=== PATIENT | female | born 1940 | race Caucasian/White ===

== ENCOUNTER 2016-12-08 08:03 | Day surgery (SDC) | payer MEDICARE, BC ==
[~2016-12-08 08:03] MED LIST: CLINDAMYCIN 600MG/50ML PREMIX 600 MG/50 ML BAG IVPB ONE
[2016-12-08 08:25] LABS: BASO % 0.4 % (0-6); EOS % 2.2 % (0-6); GRAN % 66.6 % (47-80); HEMATOCRIT 43.5 % (35.0-47.0); HEMOGLOBIN 14.4 gm/dl (11.6-16.0); LYMPH % 23.6 % (16-45); MEAN CELL VOLUME 91.4 fl (81-97); MEAN CORPUSCULAR HEMOGLOBIN 30.3 pg (27-33); MEAN CORPUSCULAR HGB CONC 33.1 g/dl (32-36); MEAN PLATELET VOLUME 10.4 fl (7.4-10.4); MONO % 7.2 % (0-9); PLATELET COUNT 214 K/uL (130-400); RED BLOOD COUNT 4.76 M/uL (3.80-5.40); RED CELL DISTRIBUTION WIDTH 13.4 % (11.5-14.5)
[2016-12-08 08:37] LABS: PROTHROMBIN TIME (PATIENT) 10.8 SECONDS (9.5-12.1)
[2016-12-08 09:41] LABS: BLOOD UREA NITROGEN 26 mg/dL (7-17); CARBON DIOXIDE 30.7 mmol/L (22-30); CREATININE 0.9 mg/dL (0.52-1.04); EST GLOMERULAR FILTRATION RATE > 60 ml/min; GLUCOSE,RANDOM 104 mg/dL (70-110)
[2016-12-08 09:42] LABS: ANION GAP 7.3 (7-16)
[2016-12-08] MEDS ORDERED: FENTANYL PF 100MCG/2ML VIAL IV ONE (12:48)
[2016-12-08] MEDS ORDERED: MIDAZOLAM HCL 2MG/2ML VIAL IV ONE (12:48)
[2016-12-08] MEDS ORDERED: PROPOFOL 10 MG/ML VIAL IV ONE (12:48)
[2016-12-08] MEDS ORDERED: LIDOCAINE 2% MDV (20MG/ML) 20ML VIAL IV ONE (12:48)
--- NOTE | 2016-12-11 10:10 | Operative Note ---
DATE OF SURGERY: 12/08/2016 Surgeon: Jewel Glasgow MD PREOPERATIVE DIAGNOSIS: Gross hematuria and right flank pain. POSTOPERATIVE DIAGNOSIS: Gross hematuria and right flank pain. OPERATION: 1. Cystoscopy. 2. Bilateral retrograde pyelograms. Anesthesia: Sedation. Indication: A 75--year-old female with the above history who has already had a noncontrast CT scan showing no upper track abnormality and she presents for completion of the investigation today. PROCEDURE: Preop informed consent was obtained. Antibiotics were given. Sedation was administered. The patient was brought to the operating room, placed in the lithotomy position with the genitalia prepped and draped sterilely. Cystoscopy was performed. The urethra and bladder was inspected carefully. No bladder mucosal abnormality was seen and the ureteral orifices had normal appearance and positioning and each was effluxing clear urine. Injection of contrast was performed into both ureters and serial mobile fluoroscopic images were obtained and saved. Recognizing the limitations to see fine detail with mobile fluoroscopy, there was no evidence of any upper tract filling defect, stricture, or dilatation on either side and drainage was quite prompt bilaterally. The bladder was then emptied, the scope was withdrawn. Bimanual pelvic exam was carried out. The patient is status post hysterectomy. There is no significant vaginal prolapse and no evidence of any vaginal or pelvic mass. The procedure was terminated. The patient was transferred to recovery in stable condition. PLAN: The patient's urologic workup is complete and no abnormality has been found. She was asked to follow up in the clinic if there is any change in her urinary symptoms moving forward. CC: Dr. Callum BARROW
== END 2016-12-08 11:30 | disposition home or self-care (01) ==
LOC: SUR 08:03
PROVIDERS: ATTEND Urology
DX: R31.0 Gross hematuria (principal); I48.91 Unspecified atrial fibrillation; Z79.01 Long term (current) use of anticoagulants; I10 Essential (primary) hypertension
CPT/HCPCS: 85025; 85610; 80048; 76000; 93005; 93010; 52005; 00910; J3010

== ENCOUNTER 2018-06-22 08:19 | Observation (INO) | payer MEDICARE ==
--- NOTE | 2018-06-22 08:56 | Emergency Department Record ---
History of Present Illness - General Chief complaint: Lower Extremity Pain Stated complaint: R LEG BRUISED/ON BLOOD THINNER Time Seen by Provider: 06/22/18 08:34 Source: Patient Mode of Arrival: Ambulatory Limitations: No limitations - History of Present Illness Initial comments: pt was exercising bending over touching her toes last night when she felt a snap in the back of her leg and had pain. this am pt found the back of her leg to be bruised in the thigh and still operator brandy MD Complaint: Extremity pain, Extremity swelling Location: Right Radiation: Proximal, Distal Severity scale (1-10): 1 Quality: Aching Improves with: Immobilization Worsens with: Walking Associated Symptoms: Denies other symptoms - Related Data Home Medications Medication Instructions Recorded Confirmed Last Taken Aspirin [Aspir-Low] 81 mg PO DAILY 06/22/18 06/22/18 Unknown Atorvastatin Calcium 20 mg PO DAILY 06/22/18 06/22/18 Unknown Calcium Carbonate [Calcium] 1,200 mg PO DAILY 06/22/18 06/22/18 Unknown Cholecalciferol (Vitamin D3) 1,000 unit PO DAILY 06/22/18 06/22/18 Unknown [Vitamin D3] Hydrochlorothiazide [Hctz] 12.5 mg PO DAILY 06/22/18 06/22/18 Unknown Lisinopril 40 mg PO DAILY 06/22/18 06/22/18 Unknown Metoprolol Tartrate 75 mg PO BID 06/22/18 06/22/18 Unknown Warfarin Sodium [Coumadin] 1 mg PO ASDIR 06/22/18 06/22/18 Unknown Warfarin Sodium [Coumadin] 5 mg PO ASDIR 06/22/18 06/22/18 Unknown Allergies Allergy/AdvReac Type Severity Reaction Status Date / Time Penicillins Allergy Severe HIVES Verified 06/22/18 08:23 Travel Screening - Travel/Exposure Within Last 30 Days Have you traveled within the last 30 days?: No Review of Systems Reviewed: No additional complaints except as noted below Constitutional: Reports: As per HPI. Denies: Chills, Fever, Malaise, Night sweats, Weakness, Weight change Eyes: Reports: As per HPI. Denies: Eye discharge, Eye pain, Photophobia, Vision change ENT: Reports: As per HPI. Denies: Congestion, Dental pain, Ear pain, Epistaxis , Hearing loss, Throat pain Respiratory: Reports: As per HPI. Denies: Cough, Dyspnea, Hemoptysis, Stridor, Wheezes Cardiovascular: Reports: As per HPI. Denies: Arrhythmia, Chest pain, Dyspnea on exertion, Edema, Murmurs, Orthopnea, Palpitations, Paroxysmal nocturnal dyspnea, Rheumatic Fever, Syncope Endocrine: Reports: As per HPI. Denies: Fatigue, Heat or cold intolerance, Polydipsia, Polyuria Gastrointestinal: Reports: As per HPI. Denies: Abdominal pain, Constipation, Diarrhea, Hematemesis, Hematochezia, Melena, Nausea, Vomiting Genitourinary: Reports: As per HPI. Denies: Abnormal menses, Discharge, Dyspareunia, Dysuria, Frequency, Hematuria, Incontinence, Retention, Urgency Musculoskeletal: Reports: As per HPI. Denies: Arthralgia, Back pain, Gout, Joint swelling, Myalgia, Neck pain Skin: Reports: As per HPI. Denies: Bruising, Change in color, Change in hair/ nails, Lesions, Pruritus, Rash Neurological: Reports: As per HPI. Denies: Abnormal gait, Confusion, Headache, Numbness, Paresthesias, Seizure, Tingling, Tremors, Vertigo, Weakness Psychiatric: Reports: As per HPI. Denies: Anxiety, Auditory hallucinations, Depression, Homicidal thoughts, Suicidal thoughts, Visual hallucinations Hematological/Lymphatic: Reports: As per HPI. Denies: Anemia, Blood Clots, Easy bleeding, Easy bruising, Swollen glands Past Medical History - SOCIAL HISTORY Smoking Status: Never smoker Alcohol Use: None Drug Use: None - RESPIRATORY Hx Respiratory Disorders: No - CARDIOVASCULAR Hx Cardio Disorders: Yes Hx Abnormal EKG: Yes Hx Chest Pain: Yes Hx Deep Vein Thrombosis: No Hx Heart Attack: Yes (1979) Hx Hypertension: Yes Hx Irregular Heartbeat: Yes Hx Palpitations: Yes - NEURO Hx Neuro Disorders: Yes Hx Dizziness: Yes Hx Headaches: Yes - GI Hx GI Disorders: Yes Hx Reflux: Yes (hx of) Hx Ulcer: Yes Hx Wt Loss/Wt Gain: Yes Hx of Polyps: Yes - Hx Genitourinary Disorders: Yes Hx Bladder Problem: Yes (blood in urine with yrly checkup) - ENDOCRINE Hx Endocrine Disorders: No - MUSCULOSKELETAL Hx Musculoskeletal Disorders: Yes Hx Arthritis: Yes (fingers/knees) - PSYCH Hx Psych Problems: No - HEMATOLOGY/ONCOLOGY Hx Hematology/Oncology Disorders: Yes Hx Anemia: Yes Hx Cancer: Yes Hx Blood Transfusions: Yes Hx Blood Transfusion Reaction: Yes Comment:: on Warfarin for rx CVA Family Medical History Any Significant Family History?: Yes Hx Alcohol Use: Father Hx Cancer: Mother, Brother/Sister *Cancer Comment: sister & mother Hx Diabetes: Mother Hx Heart Disease: Father Hx HTN: Mother Physical Exam - General General Appearance: Alert, Oriented x3, Cooperative, Mild distress - Head Head exam: Normal inspection - Eye Eye exam: Normal appearance, PERRL, EOMI Pupils: Normal accommodation - ENT ENT exam: Normal exam, Mucous membranes moist, Normal external ear exam, Normal orophraynx Ear exam: Normal external inspection. negative: External canal tenderness Nasal Exam: Normal inspection. negative: Discharge, Sinus tenderness Mouth exam: Normal external inspection, Tongue normal Teeth exam: Normal inspection. negative: Dental caries Throat exam: Normal inspection. negative: Tonsillar erythema, Tonsillar exudate - Neck Neck exam: Normal inspection, Full ROM. negative: Tenderness - Respiratory Respiratory exam: Normal lung sounds bilaterally. negative: Respiratory distress - Cardiovascular Cardiovascular Exam: Normal rhythm, Normal heart sounds, Tachycardia - GI/Abdominal GI/Abdominal exam: Soft, Normal bowel sounds. negative: Tenderness - Rectal Rectal exam: Deferred - exam: Deferred - Extremities Extremities exam: Full ROM, Normal capillary refill, Tenderness Image of Full Body: 1 - ecchymosis 2 - exquisitely tender - Back Back exam: Reports: Normal inspection, Full ROM. Denies: Muscle spasm, Rash noted, Tenderness - Neurological Neurological exam: Alert, CN II-XII intact, Normal gait, Oriented X3 - Psychiatric Psychiatric exam: Normal affect, Normal mood - Skin Skin exam: Dry, Intact, Normal color, Warm Course Vital Signs 06/22/18 08:24 Temperature 97.4 F L Pulse Rate 100 H Respiratory 20 Rate Blood Pressure 122/63 Pulse Ox 97 Medical Decision Making - Lab Data Result diagrams: 06/22/18 08:53 Disposition Disposition: Admit Clinical Impression: Anticoagulated on warfarin, Acute anemia Hematoma of right thigh Qualifiers: Encounter type: initial encounter Qualified Code(s): S70.11XA - Contusion of right thigh, initial encounter Disposition: Still a Patient at [facility] Decision to Admit: Admit from ER Decision to Admit Date: 06/22/18 Decision to Admit Time: 10:31 Forms: Patient Portal Access Quality - Quality Measures Quality Measures: N/A - Blood Pressure Screening Does Patient Have Any of the Following: No Blood Pressure Classification: Pre-Hypertensive BP Reading Systolic Measurement: 122 Diastolic Measurement: 63 Screening for High Blood Pressure: < Pre-Hypertensive BP, F/U Documented > [ [id number]] Pre-Hypertensive Follow-up Interventions: Follow-up with rescreen every year.
[2018-06-22 09:02] LABS: BASO % 0.2 % (0-6); EOS % 0.8 % (0-6); GRAN % 77.4 % (47-80); HEMATOCRIT 31.3 % (35.0-47.0); HEMOGLOBIN 9.9 gm/dl (11.6-16.0); LYMPH % 15.2 % (16-45); MEAN CELL VOLUME 94.6 fl (81-97); MEAN CORPUSCULAR HEMOGLOBIN 29.9 pg (27-33); MEAN CORPUSCULAR HGB CONC 31.6 g/dl (32-36); MEAN PLATELET VOLUME 10.3 fl (7.4-10.4); MONO % 6.4 % (0-9); PLATELET COUNT 182 K/uL (130-400); RED BLOOD COUNT 3.31 M/uL (3.80-5.40); RED CELL DISTRIBUTION WIDTH 13.5 % (11.5-14.5); WHITE BLOOD COUNT W/O DIFF 6.4 K/uL (4.2-12.2)
[2018-06-22 09:15] LABS: INR 3.8; PROTHROMBIN TIME (PATIENT) 37.2 SECONDS (9.5-12.1)
[2018-06-22] MEDS ORDERED: 0.9 % SODIUM CHLORIDE 1,000 ML BAG IV ONE (10:04)
[2018-06-22 11:55] LABS: ABO GROUP O; ANTIBODY SCREEN NEGATIVE (NEGATIVE); RH TYPE POSITIVE
--- NOTE | 2018-06-22 13:25 | History & Physical ---
History of Present Illness - Date of Service Date of Service for History & Physical: 06/22/18 - History of Present Illness Admitting Diagnosis: acute anemia secondary to injury and anticoagulation, hematoma thigh History of Present Illness: 77 yo female c/o right lower leg pain s/p a "popping" sensation and pain. Pt was doing stretching exercises, touching her toes when she sustained the injury. Pt is on coumadin for afib, CVAs. PMH HTN, hyperlipidemia. 06/22/18 Pt ambulated to [facility] ER for right leg pain x 1 day. Pt noticed bruising and when the pain did not resolve by the morning decided to have it evaluated. Bruising and pain with palpation noted to R LE. 97.4F , HR 100, BP 122/63, RR 20, 97%RA WBC 6.4, Hgb 9.9 (02/05/18 12.9), hct 31.3. Plt 182 INR 3.8 Admission for Anemia r/t Hematoma and hypercoagulation 06/22/18 Pt resting in bed, no acute distress, moving all extremities without difficulty. Pulses +3 ginger DP and PT. Right thigh dara wrapped but removed, bruising outlined an wrapped replaced. Lungs CTA, heart rate wnl, auscultated to be normal rhythm. Pt is a&ox4, eating lunch, denies any current concerns other than to go home soon. POC repeat CBC this afternoon. Pt states blood transfusions in the past r/t anemia but no h/o acute bleeding. Nursing to monitor for compartment syndrome, checking pulses and color. Bed rest until tomorrow. PCP Angela Travel Screening - Travel/Exposure Within Last 30 Days Have you traveled within the last 30 days?: No - Travel/Exposure Within Last Year Have you traveled outside the [place] in the last year?: No - Additonal Travel Details Have you been exposed to anyone with a communicable illness?: No - Travel Symptoms Symptom Screening: None Review of Systems Constitutional: Reports: As per HPI. Denies: Chills, Fever, Malaise, Night sweats, Weakness, Weight change Eyes: Reports: As per HPI. Denies: Eye discharge, Eye pain, Photophobia, Vision change ENT: Reports: As per HPI. Denies: Congestion, Dental pain, Ear pain, Epistaxis , Hearing loss, Throat pain Respiratory: Reports: As per HPI. Denies: Cough, Dyspnea, Hemoptysis, Stridor, Wheezes Cardiovascular: Reports: As per HPI. Denies: Arrhythmia, Chest pain, Dyspnea on exertion, Edema, Murmurs, Orthopnea, Palpitations, Paroxysmal nocturnal dyspnea, Rheumatic Fever, Syncope Endocrine: Reports: As per HPI. Denies: Fatigue, Heat or cold intolerance, Polydipsia, Polyuria Gastrointestinal: Reports: As per HPI. Denies: Abdominal pain, Constipation, Diarrhea, Hematemesis, Hematochezia, Melena, Nausea, Vomiting Genitourinary: Reports: As per HPI. Denies: Abnormal menses, Discharge, Dyspareunia, Dysuria, Frequency, Hematuria, Incontinence, Retention, Urgency Musculoskeletal: Reports: As per HPI. Denies: Arthralgia, Back pain, Gout, Joint swelling, Myalgia, Neck pain Skin: Reports: As per HPI. Denies: Bruising, Change in color, Change in hair/ nails, Lesions, Pruritus, Rash Neurological: Reports: As per HPI. Denies: Abnormal gait, Confusion, Headache, Numbness, Paresthesias, Seizure, Tingling, Tremors, Vertigo, Weakness Psychiatric: Reports: As per HPI. Denies: Anxiety, Auditory hallucinations, Depression, Homicidal thoughts, Suicidal thoughts, Visual hallucinations Hematological/Lymphatic: Reports: As per HPI. Denies: Anemia, Blood Clots, Easy bleeding, Easy bruising, Swollen glands Past Medical History - SOCIAL HISTORY Smoking Status: Never smoker Alcohol Use: None Drug Use: None - RESPIRATORY Hx Respiratory Disorders: No - CARDIOVASCULAR Hx Cardio Disorders: Yes Hx Abnormal EKG: Yes Hx Chest Pain: Yes Hx Deep Vein Thrombosis: No Hx Heart Attack: Yes (1979) Hx Hypertension: Yes Hx Irregular Heartbeat: Yes Hx Palpitations: Yes - NEURO Hx Neuro Disorders: Yes Hx Dizziness: Yes Hx Headaches: Yes - GI Hx GI Disorders: Yes Hx Reflux: Yes (hx of) Hx Ulcer: Yes Hx Wt Loss/Wt Gain: Yes Hx of Polyps: Yes - Hx Genitourinary Disorders: Yes Hx Bladder Problem: Yes (blood in urine with yrly checkup) - ENDOCRINE Hx Endocrine Disorders: No - MUSCULOSKELETAL Hx Musculoskeletal Disorders: Yes Hx Arthritis: Yes (fingers/knees) - PSYCH Hx Psych Problems: No - HEMATOLOGY/ONCOLOGY Hx Hematology/Oncology Disorders: Yes Hx Anemia: Yes Hx Cancer: Yes Hx Blood Transfusions: Yes Hx Blood Transfusion Reaction: Yes Comment:: on Warfarin for rx CVA Family Medical History Any Significant Family History?: Yes Hx Alcohol Use: Father Hx Cancer: Mother, Brother/Sister *Cancer Comment: sister & mother Hx Diabetes: Mother Hx Heart Disease: Father Hx HTN: Mother H&P Meds/Allergies - Allergies Allergies: Allergies Allergy/AdvReac Type Severity Reaction Status Date / Time Penicillins Allergy Severe HIVES Verified 06/22/18 08:23 - Home Medications Home Medications Medication Instructions Recorded Confirmed Last Taken Aspirin [Aspir-Low] 81 mg PO DAILY 06/22/18 06/22/18 Unknown Atorvastatin Calcium 20 mg PO DAILY 06/22/18 06/22/18 Unknown Calcium Carbonate [Calcium] 1,200 mg PO DAILY 06/22/18 06/22/18 Unknown Cholecalciferol (Vitamin D3) 1,000 unit PO DAILY 06/22/18 06/22/18 Unknown [Vitamin D3] Hydrochlorothiazide [Hctz] 12.5 mg PO DAILY 06/22/18 06/22/18 Unknown Lisinopril 40 mg PO DAILY 06/22/18 06/22/18 Unknown Metoprolol Tartrate 75 mg PO BID 06/22/18 06/22/18 Unknown Warfarin Sodium [Coumadin] 1 mg PO ASDIR 06/22/18 06/22/18 Unknown Warfarin Sodium [Coumadin] 5 mg PO ASDIR 06/22/18 06/22/18 Unknown - Active Medications Active Medications: Current Medications Acetaminophen (Tylenol 500mg Tab) 1,000 mg PO Q6H PRN PRN Reason: PAIN - MILD(1-4)/FEVER Aspirin (Ecotrin (Ec)) 81 mg PO DAILY [facility] Atorvastatin Calcium (Lipitor) 20 mg PO DAILY [facility] Hydrochlorothiazide (Hctz 12.5mg) 12.5 mg PO DAILY [facility] Lisinopril (Zestril) 40 mg PO DAILY [facility] Metoprolol Tartrate (Lopressor) 75 mg PO BID [facility] Physical Exam - Vital Signs Vital Signs: Vital Signs - Last 24 Hrs Temp Pulse Pulse Resp BP BP Pulse Ox 06/22/18 10:48 74 18 116/51 97 06/22/18 09:57 73 18 92/48 96 06/22/18 08:24 97.4 F L 100 H 20 122/63 97 - General General Appearance: Alert, Oriented x3, Cooperative, No acute distress Limitations: No limitations - Head Head exam: Normal inspection - Eye Eye exam: Normal appearance, PERRL, EOMI Pupils: Normal accommodation - ENT ENT exam: Normal exam, Mucous membranes moist, Normal external ear exam, Normal orophraynx Ear exam: Normal external inspection. negative: External canal tenderness Nasal Exam: Normal inspection. negative: Discharge, Sinus tenderness Mouth exam: Normal external inspection, Tongue normal Teeth exam: Normal inspection. negative: Dental caries Throat exam: Normal inspection. negative: Tonsillar erythema, Tonsillar exudate - Neck Neck exam: Normal inspection, Full ROM. negative: Tenderness - Respiratory Respiratory exam: Normal lung sounds bilaterally. negative: Respiratory distress - Cardiovascular Cardiovascular Exam: Normal rhythm, Normal heart sounds, Tachycardia Peripheral Pulses: 3+: Radial (R), Radial (L), Dorsalis Pedis (R), Dorsalis Pedis (L) - GI/Abdominal GI/Abdominal exam: Soft, Normal bowel sounds. negative: Tenderness - Rectal Rectal exam: Deferred - exam: Deferred - Extremities Extremities exam: Full ROM, Normal capillary refill, Tenderness - Back Back exam: Reports: Normal inspection, Full ROM. Denies: Muscle spasm, Rash noted, Tenderness - Neurological Neurological exam: Alert, CN II-XII intact, Normal gait, Oriented X3 - Psychiatric Psychiatric exam: Normal affect, Normal mood - Skin Skin exam: Dry, Erythema, Intact, Normal color, Warm, Other (bruising) Results - Labs Result Diagrams: 06/22/18 08:53 06/22/18 14:00 Labs Last 24 Hours: Laboratory Results - last 24 hr 06/22/18 06/22/18 06/22/18 08:53 08:53 10:31 WBC 6.4 RBC 3.31 L Hgb 9.9 L Hct 31.3 L MCV 94.6 MCH 29.9 MCHC 31.6 L RDW 13.5 Plt Count 182 MPV 10.3 Gran % 77.4 Lymphocytes % 15.2 L Monocytes % 6.4 Eosinophils % 0.8 Basophils % 0.2 PT 37.2 H INR 3.8 ABO Group O Rh Factor Positive Antibody Screen Negative VTE H&P Assessment - Risk for VTE Risk for VTE: Yes Risk Level: High Risk Assessment Date: 06/22/18 Risk Assessment Time: 13:26 VTE Orders Placed or Will Be Placed: No VTE Reason for No Prophylaxis: Contraindicated (on coumadin, current anemia) Plan - Detailed Diagnosis and Plan (1) Acute anemia Current Visit: Yes Status: Acute Base Code: D64.9 - ANEMIA, UNSPECIFIED Comment: 06/22/18 -Hgb 9.9, (02/05/18 hgb 12) -right Leg edema, bruising, hematoma -monitor leg, dara wrap, repeat CBC 1400 -pt will accept PRBC infusion and transfer if Hgb continues to drop r/t blood loss from hematoma (2) Anticoagulated on warfarin Current Visit: Yes Status: Acute Base Code: Z79.01 - FDC (CURRENT) USE OF ANTICOAGULANTS Comment: 06/22/18 -INR 3.8, hematoma right leg -hold coumadin tomorrow AM, repeat INR tomorrow -bruise outlined, CBC repeat this afternoon (3) Hematoma of right thigh Current Visit: Yes Status: Acute Qualifiers: Encounter type: initial encounter Qualified Code(s): S70.11XA - Contusion of right thigh, initial encounter Base Code: S70.11XA - CONTUSION OF RIGHT THIGH, INITIAL ENCOUNTER Comment: -bruising outlined, nursing to monitor pulses and color q2 hours x2, q 4 hours after that (4) DNR (do not resuscitate) Current Visit: Yes Status: Acute Base Code: Z66 - DO NOT RESUSCITATE Comment: 06/22/18 -pt reports that she has DNR in her will, wants to continue DNR -[facility] DNR request signed, nursing witnessed
[2018-06-22 14:44] LABS: BASO % 0.2 % (0-6); EOS % 0.6 % (0-6); GRAN % 71.6 % (47-80); HEMATOCRIT 30.3 % (35.0-47.0); HEMOGLOBIN 9.5 gm/dl (11.6-16.0); LYMPH % 21.3 % (16-45); MEAN CELL VOLUME 94.4 fl (81-97); MEAN CORPUSCULAR HGB CONC 31.4 g/dl (32-36); MEAN PLATELET VOLUME 10.8 fl (7.4-10.4); MONO % 6.3 % (0-9); PLATELET COUNT 169 K/uL (130-400); RED BLOOD COUNT 3.21 M/uL (3.80-5.40); RED CELL DISTRIBUTION WIDTH 13.5 % (11.5-14.5); WHITE BLOOD COUNT W/O DIFF 6.5 K/uL (4.2-12.2)
[2018-06-22 14:49] LABS: MEAN CORPUSCULAR HEMOGLOBIN 29.5 pg (27-33)
[2018-06-22 14:56] LABS: BLOOD UREA NITROGEN 16 mg/dL (8-23); CREATININE 0.8 mg/dL (0.5-0.9); EST GLOMERULAR FILTRATION RATE > 60 mL/min; GLUCOSE,RANDOM 134 mg/dL (74-109)
[2018-06-22] MEDS: ACETAMINOPHEN 500 MG TABLET PO PRN (20:06)
[2018-06-22] MEDS: METOPROLOL TART 25 MG TABLET PO SCH (21:43)
[2018-06-23 06:26] LABS: BASO % 0.3 % (0-6); EOS % 1.2 % (0-6); GRAN % 71.6 % (47-80); HEMOGLOBIN 9.9 gm/dl (11.6-16.0); LYMPH % 21.4 % (16-45); MEAN CELL VOLUME 94.2 fl (81-97); MEAN CORPUSCULAR HGB CONC 31.9 g/dl (32-36); MEAN PLATELET VOLUME 10.8 fl (7.4-10.4); MONO % 5.5 % (0-9); PLATELET COUNT 169 K/uL (130-400); RED BLOOD COUNT 3.29 M/uL (3.80-5.40); RED CELL DISTRIBUTION WIDTH 13.5 % (11.5-14.5); WHITE BLOOD COUNT W/O DIFF 5.8 K/uL (4.2-12.2)
[2018-06-23 06:36] LABS: INR 3.3; PROTHROMBIN TIME (PATIENT) 32.2 SECONDS (9.5-12.1)
[2018-06-23] MEDS: METOPROLOL TART 25 MG TABLET PO SCH ×2 (10:01→22:16)
[2018-06-23] MEDS: ATORVASTATIN 20 MG TABLET PO SCH (10:01)
[2018-06-23] MEDS: ASPIRIN 81 MG TABEC PO SCH (10:01)
[2018-06-23] MEDS: LISINOPRIL 20 MG TABLET PO SCH (10:04)
[2018-06-23] MEDS: HYDROCHLOROTHIAZIDE 12.5 MG CAPSULE PO SCH (10:04)
--- NOTE | 2018-06-23 11:21 | Physician Progress Note ---
Subjective - Date Date of Physician Progress Note: 06/23/18 - Subjective Subjective Comment: 06/23/18 Pt states pain has improved, bruising continues outside of markings but hematoma remains soft. H-H stable but INR elevated. Location: Right, Lower extremity Severity scale (1-10): 1 Quality: Aching Consistency: Constant Improves with: Rest Objective - Vital Signs Vital Signs: Vital Signs - Last 24 Hrs Temp Pulse Resp BP Pulse Ox 06/23/18 09:55 98.1 F 107 H 18 98/59 98 06/23/18 06:00 98.0 F 77 20 153/70 97 06/22/18 21:00 16 06/22/18 20:00 98.4 F 96 H 18 112/68 97 06/22/18 18:00 96.8 F L 106 H 18 141/71 97 06/22/18 13:45 20 06/22/18 11:45 97.5 F L 84 18 119/66 96 - General General Appearance: Alert, Oriented x3, Cooperative, No acute distress Limitations: No limitations - Head Head exam: Normal inspection - Eye Eye exam: Normal appearance, PERRL, EOMI Pupils: Normal accommodation - ENT ENT exam: Normal exam, Mucous membranes moist, Normal external ear exam, Normal orophraynx Ear exam: Normal external inspection. negative: External canal tenderness Nasal Exam: Normal inspection. negative: Discharge, Sinus tenderness Mouth exam: Normal external inspection, Tongue normal Teeth exam: Normal inspection. negative: Dental caries Throat exam: Normal inspection. negative: Tonsillar erythema, Tonsillar exudate - Neck Neck exam: Normal inspection, Full ROM. negative: Tenderness - Respiratory Respiratory exam: Normal lung sounds bilaterally. negative: Respiratory distress - Cardiovascular Cardiovascular Exam: Normal rhythm, Normal heart sounds, Tachycardia Peripheral Pulses: 3+: Radial (R), Radial (L), Dorsalis Pedis (R), Dorsalis Pedis (L) - GI/Abdominal GI/Abdominal exam: Soft, Normal bowel sounds. negative: Tenderness - Rectal Rectal exam: Deferred - exam: Deferred - Extremities Extremities exam: Full ROM, Normal capillary refill, Tenderness - Back Back exam: Reports: Normal inspection, Full ROM. Denies: Muscle spasm, Rash noted, Tenderness - Neurological Neurological exam: Alert, CN II-XII intact, Normal gait, Oriented X3 - Psychiatric Psychiatric exam: Normal affect, Normal mood - Skin Skin exam: Dry, Erythema, Intact, Normal color, Warm, Other (bruising) Assessment and Plan - Assessment and Plan (1) Acute anemia Current Visit: Yes Status: Acute Base Code: D64.9 - ANEMIA, UNSPECIFIED Comment: 06/22/18 -Hgb 9.9, (02/05/18 hgb 12) -right Leg edema, bruising, hematoma -monitor leg, dara wrap, repeat CBC 1400 -pt will accept PRBC infusion and transfer if Hgb continues to drop r/t blood loss from hematoma -hgb 9.9->9.5->9.9 -HCT stable -INR 3.3, holding coumadin 1 more day, pharmacy to take over dosing tomorrow -US ordered for tomorrow (2) Anticoagulated on warfarin Current Visit: Yes Status: Acute Base Code: Z79.01 - [facility] (CURRENT) USE OF ANTICOAGULANTS Comment: 06/22/18 -INR 3.8, hematoma right leg -hold coumadin tomorrow AM, repeat INR tomorrow -bruise outlined, CBC repeat this afternoon 06/23/18 -INR 3.3, holding todays coumadin, pharmacy to dose tomorrow -H-H stable and improving (3) Hematoma of right thigh Current Visit: Yes Status: Acute Qualifiers: Encounter type: initial encounter Qualified Code(s): S70.11XA - Contusion of right thigh, initial encounter Base Code: S70.11XA - CONTUSION OF RIGHT THIGH, INITIAL ENCOUNTER Comment: -bruising outlined, nursing to monitor pulses and color through the night 06/23/18 -dara wrap removed, bruising traveling past the markings but this may be from gravity -H-H stable, hematoma soft and less TTP (4) DNR (do not resuscitate) Current Visit: Yes Status: Acute Base Code: Z66 - DO NOT RESUSCITATE Comment: 06/22/18 -pt reports that she has DNR in her will, wants to continue DNR -[facility] DNR request signed, nursing witnessed 06/23/18 -DNR Results - Labs Result Diagrams: 06/23/18 06:15 06/22/18 14:00 Labs Last 24 Hours: Laboratory Results - last 24 hr 06/22/18 06/22/18 06/22/18 10:31 14:00 14:00 WBC 6.5 RBC 3.21 L Hgb 9.5 L Hct 30.3 L MCV 94.4 MCH 29.5 MCHC 31.4 L RDW 13.5 Plt Count 169 MPV 10.8 H Gran % 71.6 Lymphocytes % 21.3 Monocytes % 6.3 Eosinophils % 0.6 Basophils % 0.2 PT INR Sodium 143 Potassium 3.8 Chloride 102 Carbon Dioxide 30.0 H Anion Gap 11.0 BUN 16 Creatinine 0.8 Estimated GFR > 60 Random Glucose 134 H Calcium 8.3 L ABO Group O Rh Factor Positive Antibody Screen Negative 06/23/18 06/23/18 06:15 06:15 WBC 5.8 RBC 3.29 L Hgb 9.9 L Hct 31.0 L MCV 94.2 MCH 30.0 MCHC 31.9 L RDW 13.5 Plt Count 169 MPV 10.8 H Gran % 71.6 Lymphocytes % 21.4 Monocytes % 5.5 Eosinophils % 1.2 Basophils % 0.3 PT 32.2 H INR 3.3 Sodium Potassium Chloride Carbon Dioxide Anion Gap BUN Creatinine Estimated GFR Random Glucose Calcium ABO Group Rh Factor Antibody Screen DVT/PE Assessment - Risk for VTE Risk for VTE: No Risk Level: High Risk Assessment Date: 06/22/18 Risk Assessment Time: 13:26 VTE Orders Placed or Will Be Placed: No VTE Reason for No Prophylaxis: Contraindicated (on coumadin, current anemia) - Active Medicaitons Current Medications: Current Medications Acetaminophen (Tylenol 500mg Tab) 1,000 mg PO Q6H PRN PRN Reason: PAIN - MILD(1-4)/FEVER Last Admin: 06/22/18 20:06 Dose: 1,000 mg Aspirin (Ecotrin (Ec)) 81 mg PO DAILY [facility] Last Admin: 06/23/18 10:01 Dose: 81 mg Atorvastatin Calcium (Lipitor) 20 mg PO DAILY [facility] Last Admin: 06/23/18 10:01 Dose: 20 mg Hydrochlorothiazide (Hctz 12.5mg) 12.5 mg PO DAILY [facility] Last Admin: 06/23/18 10:04 Dose: Not Given Lisinopril (Zestril) 40 mg PO DAILY [facility] Last Admin: 06/23/18 10:04 Dose: Not Given Metoprolol Tartrate (Lopressor) 75 mg PO BID [facility] Last Admin: 06/23/18 10:01 Dose: 75 mg AMI Plan - Labs Result Diagrams: 06/23/18 06:15 06/22/18 14:00
[2018-06-23] MEDS: ACETAMINOPHEN 500 MG TABLET PO PRN (22:17)
[2018-06-24 06:27] LABS: HEMATOCRIT 31.8 % (35.0-47.0); HEMOGLOBIN 10.1 gm/dl (11.6-16.0)
[2018-06-24 06:42] LABS: BLOOD UREA NITROGEN 17 mg/dL (8-23); CREATININE 0.6 mg/dL (0.5-0.9); EST GLOMERULAR FILTRATION RATE > 60 mL/min; GLUCOSE,RANDOM 114 mg/dL (74-109)
[2018-06-24] MEDS: ACETAMINOPHEN 500 MG TABLET PO PRN (07:21)
[2018-06-24 07:47] LABS: INR 1.8; PROTHROMBIN TIME (PATIENT) 18.1 SECONDS (9.5-12.1)
[2018-06-24] MEDS: ASPIRIN 81 MG TABEC PO SCH (09:23)
[2018-06-24] MEDS: METOPROLOL TART 25 MG TABLET PO SCH (09:23)
[2018-06-24] MEDS: HYDROCHLOROTHIAZIDE 12.5 MG CAPSULE PO SCH (09:23)
[2018-06-24] MEDS: ATORVASTATIN 20 MG TABLET PO SCH (09:24)
[2018-06-24] MEDS: LISINOPRIL 20 MG TABLET PO SCH (09:24)
--- NOTE | 2018-06-24 09:52 | Discharge Summary ---
Providers Discharge Summary Date: 06/24/18 Date of admission: 06/22/18 11:25 Expected Date of Discharge: 06/24/18 Attending physician: ROSEMARIE DIGGS Primary care physician: LAURENT REGAN D.O. Physical Exam - Vital Signs Vital Signs: Vital Signs - Last 24 Hrs Temp Pulse Resp BP Pulse Ox 06/24/18 09:30 98.1 F 90 18 125/48 93 L 06/24/18 06:00 98.0 F 94 H 20 126/73 99 06/23/18 21:11 98.7 F 81 18 120/69 96 06/23/18 14:00 98.9 F 76 18 113/57 96 06/23/18 09:55 98.1 F 107 H 18 98/59 98 - General General Appearance: Alert, Oriented x3, Cooperative, No acute distress Limitations: No limitations - Head Head exam: Normal inspection - Eye Eye exam: Normal appearance, PERRL, EOMI Pupils: Normal accommodation - ENT ENT exam: Normal exam, Mucous membranes moist, Normal external ear exam, Normal orophraynx Ear exam: Normal external inspection. negative: External canal tenderness Nasal Exam: Normal inspection. negative: Discharge, Sinus tenderness Mouth exam: Normal external inspection, Tongue normal Teeth exam: Normal inspection. negative: Dental caries Throat exam: Normal inspection. negative: Tonsillar erythema, Tonsillar exudate - Neck Neck exam: Normal inspection, Full ROM. negative: Tenderness - Respiratory Respiratory exam: Normal lung sounds bilaterally. negative: Respiratory distress - Cardiovascular Cardiovascular Exam: Normal rhythm, Normal heart sounds, Tachycardia Peripheral Pulses: 3+: Radial (R), Radial (L), Dorsalis Pedis (R), Dorsalis Pedis (L) - GI/Abdominal GI/Abdominal exam: Soft, Normal bowel sounds. negative: Tenderness - Rectal Rectal exam: Deferred - exam: Deferred - Extremities Extremities exam: Full ROM, Normal capillary refill, Tenderness - Back Back exam: Reports: Normal inspection, Full ROM. Denies: Muscle spasm, Rash noted, Tenderness - Neurological Neurological exam: Alert, CN II-XII intact, Normal gait, Oriented X3 - Psychiatric Psychiatric exam: Normal affect, Normal mood - Skin Skin exam: Dry, Erythema, Intact, Normal color, Warm, Other (bruising) Hospitalization - Hospitalization Admission Diagnosis: acute anemia secondary to injury and anticoagulation, hematoma thigh - Problem List/Discharge Diagnosis (1) Acute anemia Current Visit: Yes Status: Acute Base Code: D64.9 - ANEMIA, UNSPECIFIED Comment: 06/22/18 -Hgb 9.9, (02/05/18 hgb 12) -right Leg edema, bruising, hematoma -monitor leg, dara wrap, repeat CBC 1400 -pt will accept PRBC infusion and transfer if Hgb continues to drop r/t blood loss from hematoma -hgb 9.9->9.5->9.9 -HCT stable -INR 3.3, holding coumadin 1 more day, pharmacy to take over dosing tomorrow -US ordered for tomorrow 06/24/18 -H/H stable, Hgb increased -US completed, awaiting results (2) Anticoagulated on warfarin Current Visit: Yes Status: Acute Base Code: Z79.01 - [facility] (CURRENT) USE OF ANTICOAGULANTS Comment: 06/22/18 -INR 3.8, hematoma right leg -hold coumadin tomorrow AM, repeat INR tomorrow -bruise outlined, CBC repeat this afternoon 06/23/18 -INR 3.3, holding todays coumadin, pharmacy to dose tomorrow -H-H stable and improving 06/24/18 -pt held 1 dose coumadin and INR now 1.8, therapy now pharmacy to dose -hematoma appears stable -pt denies any diet changes or med changes recently -had INR checked with PCP 1 week ago, was told normal and to continue meds (3) Hematoma of right thigh Current Visit: Yes Status: Acute Discharge Diagnosis: Encounter type: initial encounter Qualified Code(s): S70.11XA - Contusion of right thigh, initial encounter Base Code: S70.11XA - CONTUSION OF RIGHT THIGH, INITIAL ENCOUNTER Comment: -bruising outlined, nursing to monitor pulses and color through the night 06/23/18 -dara wrap removed, bruising traveling past the markings but this may be from gravity -H-H stable, hematoma soft and less TTP 06/24/18 -H-H stable, hematoma soft but sore generalized, controlled with tylenol -awaiting US report and pt to d/c today pending US results (4) DNR (do not resuscitate) Current Visit: Yes Status: Acute Base Code: Z66 - DO NOT RESUSCITATE Comment: 06/22/18 -pt reports that she has DNR in her will, wants to continue DNR -[facility] DNR request signed, nursing witnessed 06/24/18 -DNR - Hospitalization Course Disposition: Home, Self-Care Hospital Course: 77 yo female c/o right lower leg pain s/p a "popping" sensation and pain. Pt was doing stretching exercises, touching her toes when she sustained the injury. Pt is on coumadin for afib, CVAs. PMH HTN, hyperlipidemia. 06/22/18 Pt ambulated to [facility] ER for right leg pain x 1 day. Pt noticed bruising and when the pain did not resolve by the morning decided to have it evaluated. Bruising and pain with palpation noted to R LE. 97.4F , HR 100, BP 122/63, RR 20, 97%RA WBC 6.4, Hgb 9.9 (02/05/18 12.9), hct 31.3. Plt 182 INR 3.8 Admission for Anemia r/t Hematoma and hypercoagulation 06/22/18 Pt resting in bed, no acute distress, moving all extremities without difficulty. Pulses +3 ginger DP and PT. Right thigh dara wrapped but removed, bruising outlined an wrapped replaced. Lungs CTA, heart rate wnl, auscultated to be normal rhythm. Pt is a&ox4, eating lunch, denies any current concerns other than to go home soon. POC repeat CBC this afternoon. Pt states blood transfusions in the past r/t anemia but no h/o acute bleeding. Nursing to monitor for compartment syndrome, checking pulses and color. Bed rest until tomorrow. PCP Angela Procedures: Imaging and X-Rays 06/24/18 08:00 EXTREMITY, LOWER [US] Urgent Abnormal Labs: Abnormal Lab Results 06/22/18 06/22/18 06/22/18 Range/Units 08:53 08:53 14:00 RBC 3.31 L 3.21 L (3.80-5.40) M/uL Hgb 9.9 L 9.5 L (11.6-16.0) gm/dl Hct 31.3 L 30.3 L (35.0-47.0) % MCHC 31.6 L 31.4 L (32-36) g/dl MPV 10.8 H (7.4-10.4) fl Lymphocytes % 15.2 L (16-45) % PT 37.2 H (9.5-12.1) SECONDS Carbon Dioxide (22-29) mmol/L Random Glucose (74-109) mg/dL Calcium (8.8-10.2) mg/dL 06/22/18 06/23/18 06/23/18 Range/Units 14:00 06:15 06:15 RBC 3.29 L (3.80-5.40) M/uL Hgb 9.9 L (11.6-16.0) gm/dl Hct 31.0 L (35.0-47.0) % MCHC 31.9 L (32-36) g/dl MPV 10.8 H (7.4-10.4) fl Lymphocytes % (16-45) % PT 32.2 H (9.5-12.1) SECONDS Carbon Dioxide 30.0 H (22-29) mmol/L Random Glucose 134 H (74-109) mg/dL Calcium 8.3 L (8.8-10.2) mg/dL 06/24/18 06/24/18 06/24/18 Range/Units 06:20 06:20 06:20 RBC (3.80-5.40) M/uL Hgb 10.1 L (11.6-16.0) gm/dl Hct 31.8 L (35.0-47.0) % MCHC (32-36) g/dl MPV (7.4-10.4) fl Lymphocytes % (16-45) % PT 18.1 H (9.5-12.1) SECONDS Carbon Dioxide (22-29) mmol/L Random Glucose 114 H (74-109) mg/dL Calcium (8.8-10.2) mg/dL Condition at Discharge: (2) Stable Discharge Medications - Discharge Medications Prescriptions: Warfarin Sodium [Coumadin] 0.5 mg PO ASDIR #1 tablet Home Medications: Ambulatory Orders Aspirin [Aspir-Low] 81 mg PO DAILY 06/22/18 [Last Taken Unknown] Atorvastatin Calcium 20 mg PO DAILY 06/22/18 [Last Taken Unknown] Calcium Carbonate [Calcium] 1,200 mg PO DAILY 06/22/18 [Last Taken Unknown] Cholecalciferol (Vitamin D3) [Vitamin D3] 1,000 unit PO DAILY 06/22/18 [Last Taken Unknown] Hydrochlorothiazide [Hctz] 12.5 mg PO DAILY 06/22/18 [Last Taken Unknown] Lisinopril 40 mg PO DAILY 06/22/18 [Last Taken Unknown] Metoprolol Tartrate 75 mg PO BID 06/22/18 [Last Taken Unknown] Warfarin Sodium [Coumadin] 5 mg PO ASDIR 06/22/18 [Last Taken Unknown] Acetaminophen [Tylenol 500Mg Tab] 1,000 mg PO Q6H PRN tablet 06/24/18 [Last Taken Unknown] Warfarin Sodium [Coumadin] 0.5 mg PO ASDIR #1 tablet 06/24/18 [Last Taken Unknown] Discharge Plan - Discharge Instructions Activity at Discharge: Increase Activity as Tolerated Diet at Discharge: Advance to Usual Diet Instructions: Contusion in Adults (DC) Additional Instructions: Please take 5.5mg coumadin daily, have your labs drawn morning. Estiven from pharmacy will be notified and will call you if you need to adjust before you see your primary provider. Your ultrasound results show that you have a few small hematomas but no large pocket of fluid. Continue to check the leg, if it becomes very painful, cold to the touch, or firm to the touch go to ER. Return to light activity, taking tylenol for pain. Follow up with your PCP in 1-2 weeks. Quality Measures - Quality Measures Quality Measures: Advance Directives, Documentation of Current Medications in Medical Record, Elder Maltreatment Screen and Follow-Up Plan, Screening for High Blood Pressure and F/U Documented - Current Medications Quality Measure: Measure #130: Documentation of Current Medications Documentation of Current Medications: <Current Medications Documented/Reviewed> [G8427] - Blood Pressure Screening Quality Measure: Screening for High Blood Pressure and Follow-Up Documented Does Patient Have Any of the Following: Active Dx of HTN Blood Pressure Classification: Pre-Hypertensive BP Reading Systolic Measurement: 122 Diastolic Measurement: 63 Screening for High Blood Pressure: Patient Exclusion, Hx of HTN [G9744] - Atrial Fibrillation and Atrial Flutter Does Patient Have Any of the Following: Mitral Stenosis Anticoagulation Therapy: Patient Exclusion [G9746] - Advance Directives Quality Measure: Measure #47: Care Plan Advance Directives Established: No Advance Directives Information Provided To Patient: Already Provided Advance Directives on File: No Living Will: No Power of Valve Repairer: No Advance Care Planning: <Care Plan/Decision Maker Documented; Discussed & Documented> [3473F] - Elder Abuse Suspicion Index Screening: Elder Abuse Suspicion Index Screening Rely on people for bathing, dressing, shopping, banking, etc: No Prevented from getting food, clothes, medication, etc: No Made to feel shamed or threatened by someone: No Forced to sign papers or use money against will: No Feel afraid, touched in ways not wanted or hurt physically: No Poor eye contact, withdrawn, malnourished, cuts or bruises: No Screening Result: Negative result EASI Reference Information: Harris MAJOR, Jos C, Baljinder D, Peace Kee.Development and validation of a tool to assist physicians identification of elder abuse: The Elder Abuse Suspicion Index (EASI ). Journal of Elder Abuse and Neglect, 2008; 20 (3): 276-300. - Elder Maltreatment Screen Quality Measures: Elder Maltreatment Screen and Follow-Up Plan Elder Maltreatment Screen: <Negative, No Follow-Up Plan Required> [G9607]
--- NOTE | 2018-06-24 12:47 | ULTRASOUND REPORT ---
EXAM: ULTRASOUND OF THE RIGHT LOWER EXTREMITY HISTORY: RIGHT THIGH BRUISING/HEMATOMA. TECHNIQUE: Routine sonographic imaging of the posterior right thigh is performed at the level of bruising. FINDINGS: No large hematoma collection is seen. There are a couple small ill defined fluid collections in the medial distal thigh and popliteal area measuring 1.4 x 0.7 cm and 2.0 x 1.0 cm respectively. These are likely small hematomas. No other cystic or solid mass demonstrated. IMPRESSION: IMAGING OF THE AREA OF BRUISING WITHIN THE RIGHT THIGH DOES NOT DEMONSTRATE LARGE HEMATOMA. THERE ARE A COUPLE SMALL AREAS OF ILL DEFINED FLUID DISTALLY MEASURING 2.0 X 1.0 CM AND 1.4 X 0.7 CM RESPECTIVELY CONSISTENT WITH SMALL HEMATOMAS. JOB NUMBER: [id number] MTDD
== END 2018-06-24 13:27 | disposition home or self-care (01) ==
LOC: ER 08:19 → MEDSURG 11:25
PROVIDERS: ADMIT Internal Medicine; ATTEND Internal Medicine
DX: D64.9 Anemia, unspecified (principal); S70.11XA Contusion of right thigh, initial encounter; Z79.01 Long term (current) use of anticoagulants; I10 Essential (primary) hypertension; M17.0 Bilateral primary osteoarthritis of knee; M19.042 Primary osteoarthritis, left hand; M19.041 Primary osteoarthritis, right hand; K21.9 Gastro-esophageal reflux disease without esophagitis; I25.2 Old myocardial infarction; Z66 Do not resuscitate; Z86.73 Personal history of transient ischemic attack (TIA), and cerebral infarction without residual deficits; Z85.9 Personal history of malignant neoplasm, unspecified
CPT/HCPCS: 85025 ×2; 85018; 85014; 85610 ×3; 80048 ×2; 86900; 86901; 86850; 76882; G0378 ×3; 99217; 99220; 99285; J7030

== ENCOUNTER 2019-05-17 10:13 | Emergency (ER) | payer MEDICARE ==
--- NOTE | 2019-05-17 10:34 | Emergency Department Record ---
History of Present Illness - General Chief complaint: Extremity Problem Stated complaint: LT ARM WEKNESS/BRUISING Time Seen by Provider: 05/17/19 10:15 Source: Patient, Family Mode of Arrival: Ambulatory Limitations: No limitations - History of Present Illness Initial comments: 78 yo female presents with left forearm pain, swelling, and bruising. She s tates she went to bed around 10 pm feeling normal. She did wake up around 1am and noted some arm pain in the forearm at the wrist. This morning she awoke to some forearm pain and bruising. She felt an ache in the forearm as well. She does not recall any specific injury. No numbness, tingling or coolness. No Fever. No other new or acute changes. No headache, sudden vision changes (chronic changes, last week she had a little trouble reading), no speech changes, no facial expression changes, no difficulty with walking. No other extremity symptoms. She is on Warfarin and has a history of prior strokes. With the forearm swelling and bruising she did not take her Warfarin this morning. Dr Miller is her PCP MD Complaint: Extremity pain, Extremity swelling -: Hour(s) Location: Left, Forearm History of Same: No -: Yes Myalgia Radiation: Distal Quality: Aching Consistency: Constant Improves with: Movement Worsens with: Palpation Associated Symptoms: Denies other symptoms - Related Data Home Medications Medication Instructions Recorded Confirmed Last Taken Warfarin Sodium [Coumadin] 1 mg PO ASDIR 05/17/19 05/17/19 Unknown Previous Rx's Medication Instructions Recorded Acetaminophen [Tylenol 500Mg Tab] 1,000 mg PO Q6H PRN tablet 06/24/18 Allergies Allergy/AdvReac Type Severity Reaction Status Date / Time Penicillins Allergy Severe HIVES Verified 06/22/18 08:23 Review of Systems Constitutional: Denies: Chills, Fever, Malaise, Weakness Eyes: Denies: Eye discharge, Eye pain, Photophobia, Vision change ENT: Denies: Congestion, Throat pain Respiratory: Denies: Cough, Dyspnea, Hemoptysis Cardiovascular: Denies: Chest pain, Palpitations, Syncope Endocrine: Denies: Fatigue, Polydipsia, Polyuria Gastrointestinal: Denies: Abdominal pain, Diarrhea, Nausea, Vomiting Genitourinary: Denies: Dysuria, Urgency Musculoskeletal: Reports: Myalgia. Denies: Arthralgia, Neck pain Skin: Reports: As per HPI, Bruising Neurological: Reports: Weakness. Denies: Abnormal gait, Confusion, Headache, Numbness, Paresthesias, Tingling, Vertigo Psychiatric: Denies: Anxiety Hematological/Lymphatic: Reports: Easy bruising Past Medical History - SOCIAL HISTORY Smoking Status: Never smoker Drug Use: None - RESPIRATORY Hx Respiratory Disorders: No - CARDIOVASCULAR Hx Cardio Disorders: Yes Hx Abnormal EKG: Yes Hx Chest Pain: Yes Hx Deep Vein Thrombosis: No Hx Heart Attack: Yes (1979) Hx Hypertension: Yes Hx Irregular Heartbeat: Yes Hx Palpitations: Yes - NEURO Hx Neuro Disorders: Yes Hx Dizziness: Yes Hx Headaches: Yes - GI Hx GI Disorders: Yes Hx Reflux: Yes (hx of) Hx Ulcer: Yes Hx Wt Loss/Wt Gain: Yes Hx of Polyps: Yes - Hx Genitourinary Disorders: Yes Hx Bladder Problem: Yes (blood in urine with yrly checkup) - ENDOCRINE Hx Endocrine Disorders: No - MUSCULOSKELETAL Hx Musculoskeletal Disorders: Yes Hx Arthritis: Yes (fingers/knees) - PSYCH Hx Psych Problems: No - HEMATOLOGY/ONCOLOGY Hx Hematology/Oncology Disorders: Yes Hx Anemia: Yes Hx Cancer: Yes Hx Blood Transfusions: Yes Hx Blood Transfusion Reaction: Yes Comment:: on Warfarin for rx CVA Family Medical History Hx Alcohol Use: Father Hx Cancer: Mother, Brother/Sister *Cancer Comment: sister & mother Hx Diabetes: Mother Hx Heart Disease: Father Hx HTN: Mother Physical Exam - General General Appearance: Alert, Oriented x3, Cooperative, No acute distress Limitations: No limitations - Head Head exam: Atraumatic, Normocephalic, Normal inspection - Eye Eye exam: Normal appearance, PERRL. negative: Conjunctival injection, Scleral icterus - ENT ENT exam: Normal exam, Mucous membranes moist Ear exam: Normal external inspection Nasal Exam: Normal inspection Mouth exam: Normal external inspection - Neck Neck exam: Normal inspection, Full ROM - Respiratory Respiratory exam: Normal lung sounds bilaterally. negative: Respiratory distress - Cardiovascular Cardiovascular Exam: Regular rate, Normal rhythm, Normal heart sounds Peripheral Pulses: 2+: Radial (R), Radial (L) (symmetric R and L radial pulses) - Rectal Rectal exam: Deferred - exam: Deferred - Extremities Extremities exam: Full ROM, Normal capillary refill (brisk finger capillary refill), Tenderness (tender distal wrist, volar area at location of bruise.). negative: Normal inspection Image of Full Body: 1 - bruising from the volar flexor crease proximal about 1/3 up the forearm, it is tender at the most distal point, the foream itself is very soft with full ROM, L radial pulse is strong, no significant pain with active for passive ROM, no subjective or objective sensory changes. The most distal area at the flexor crease is mildly firmer suggesting sight of original bleeding. The remaing forearm is very soft. 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 Warm skin. No pallor. moves fingers well. - Back Back exam: Denies: CVA tenderness (R), CVA tenderness (L) - Neurological Neurological exam: Alert, Normal gait, Oriented X3. negative: Motor sensory deficit - Psychiatric Psychiatric exam: negative: Agitated, Anxious - Skin Skin exam: Normal color, Other (bruising). negative: Cyanosis, Diaphoretic, Erythema, Mottled, Pallor Course - Reevaluation(s) Reevaluation #1: 05/17/19 10:34 The findings are consistent with a small bleed in the soft tissues of the distal most forearm in a superficial location. She does not recall any injury. There are no signs of compartment syndrome at this time. The compartment is very soft, no significant pain with active or passive movement,she has strong pulses and brisk capillary refill. She has local pain distal wrist at the sight that seems to be where the bleeding initiated otherwise non tender. No signs of neurologic changes to the left upper extremity. She is on Warfarin so labs were obtained. The elbow and upper arm are completely normal on inspection and testing without pain, swelling, tenderness, bruising or weakness 05/17/19 10:48 The CBC is normal The INR is 3.0 I will have her hold today's dose and tomorrow's dose I will have her restart on Sunday I explained she is to return immediately if she has pain, numbness, tingling, weakness. I explained that the bruising will likely spread and that is a normal progression. It may last 2-3 weeks. I discussed elevation, and ice to minimize swelling 05/17/19 10:54 The BMP is normal with normal renal function 05/17/19 11:07 Medical Decision Making - Lab Data Result diagrams: 05/17/19 10:30 05/17/19 10:30 Disposition Disposition: Discharge Clinical Impression: Hematoma Disposition: Home, Self-Care Condition: (1) Good Instructions: Warfarin Toxicity (ED) Additional Instructions: Elevate the left arm today. You may ice the area every 4-6 hours for about 15 minutes Return to be seen immediately if the arm swelling increases, pain increases, numbness, tingling or weakness Hold your Warfarin today and tomorrow You may resume on Sunday but I recommend having your INR and PT recheck on Sunday as well Avoid Aspirin as this could increase bleeding Forms: Patient Portal Access Time of Disposition: 10:54 Quality - Quality Measures Quality Measures: N/A - Blood Pressure Screening Does Patient Have Any of the Following: Active Dx of HTN Blood Pressure Classification: Hypertensive Reading Systolic Measurement: 146 Diastolic Measurement: 97 Screening for High Blood Pressure: Patient Exclusion, Hx of HTN [G9744]
[2019-05-17 10:35] LABS: BASO % 0.3 % (0-6); EOS % 0.9 % (0-6); HEMOGLOBIN 12.9 gm/dl (11.6-16.0); LYMPH % 16.5 % (16-45); MEAN CELL VOLUME 92.8 fl (81-97); MEAN CORPUSCULAR HEMOGLOBIN 29.2 pg (27-33); MEAN CORPUSCULAR HGB CONC 31.5 g/dl (32-36); MEAN PLATELET VOLUME 10.4 fl (7.4-10.4); MONO % 5.3 % (0-9); PLATELET COUNT 210 K/uL (130-400); RED BLOOD COUNT 4.42 M/uL (3.80-5.40); RED CELL DISTRIBUTION WIDTH 13.3 % (11.5-14.5); WHITE BLOOD COUNT W/O DIFF 7.4 K/uL (4.2-12.2)
[2019-05-17 10:46] LABS: PARTIAL THROMBOPLASTIN TIME 40.5 SECONDS (24.5-39.1); PROTHROMBIN TIME (PATIENT) 29.4 SECONDS (9.5-12.1)
[2019-05-17 10:48] LABS: BLOOD UREA NITROGEN 20 mg/dL (8-23)
[2019-05-17 10:49] LABS: CREATININE 0.8 mg/dL (0.5-0.9); EST GLOMERULAR FILTRATION RATE > 60 mL/min
[2019-05-17 10:51] LABS: GLUCOSE,RANDOM 117 mg/dL (74-109)
== END 2019-05-17 11:08 | disposition home or self-care (01) ==
LOC: ER 10:13
DX: S50.12XA Contusion of left forearm, initial encounter (principal); M25.532 Pain in left wrist; R29.898 Other symptoms and signs involving the musculoskeletal system; R79.1 Abnormal coagulation profile; I10 Essential (primary) hypertension; I25.2 Old myocardial infarction; Z79.01 Long term (current) use of anticoagulants; X58.XXXA Exposure to other specified factors, initial encounter
CPT/HCPCS: 80048; 85025; 85610; 85730; 99284